=== PATIENT | female | born 1995 | race Caucasian/White ===

== ENCOUNTER 2017-02-08 13:27 | Emergency (ER) | payer OTHER ==
[~2017-02-08] VITALS: Ht 175.3 cm; Wt 96.4 kg
[2017-02-08 13:28] VITALS: BP 115/82
[2017-02-08] MEDS ORDERED: COLA100C5 PO (13:34)
[2017-02-08] MEDS ORDERED: MIRA33504 PO (13:34)
[2017-02-08] MEDS ORDERED: FLEEENE12 PR (15:07)
== END 2017-02-08 15:19 | disposition home or self-care (01) ==
LOC: M ED 13:27
DX: K59.00 Constipation, unspecified (principal)

== ENCOUNTER → 2018-09-24 | Outpatient (CLI) | payer OTHER ==
[~2018-09-24] MED LIST: COLA100C5 PO; FLEEENE12 PR; MIRA33504 PO
== END ==
LOC: M SLEEP 19:29
PROVIDERS: ATTEND Physician Assistant
DX: R40.0 Somnolence (principal)